=== PATIENT | male | born 1985 | race Caucasian/White ===

== ENCOUNTER 2018-09-08 14:42 | Inpatient (IN) | payer OTHER ==
[~2018-09-08] VITALS: Ht 175.3 cm; Wt 72.7 kg
[2018-09-08] MEDS ORDERED: ZYRTTAB8 PO (15:05)
[2018-09-08 15:58] LABS: HEMATOCRIT 45.7 % (42.0-52.0); HEMOGLOBIN 15.7 g/dl (13.5-17.5); MEAN CORPUSCULAR HEMOGLOBIN 29.7 pg (27.0-33.0); MEAN CORPUSCULAR HGB CONC 34.4 g/dl (32.0-36.5); MEAN CORPUSCULAR VOLUME 86.6 fl (80.0-96.0); PLATELET COUNT, AUTOMATED 307 10^3/uL (150-450); RED BLOOD COUNT 5.28 10^6/uL (4.30-6.10); WHITE BLOOD COUNT 13.8 10^3/uL (4.0-10.0)
[2018-09-08 16:21] LABS: AMPHETAMINES LEVEL URINE NEGATIVE (NEGATIVE); BARBITURATES URINE NEGATIVE (NEGATIVE); BENZODIAZEPINES URINE NEGATIVE (NEGATIVE); CANNABINOIDS URINE POSITIVE (NEGATIVE); COCAINE METABOLITE URINE NEGATIVE (NEGATIVE); METHADONE URINE NEGATIVE (NEGATIVE); OPIATES URINE NEGATIVE (NEGATIVE); PHENCYCLIDINE URINE NEGATIVE (NEGATIVE)
[2018-09-08 16:38] LABS: ACETAMINOPHEN LEVEL < 2.0 UG/ML (10.0-30.0); ALBUMIN 4.3 GM/DL (3.2-5.2); ALT/SGPT 22 U/L (12-78); BILIRUBIN,DIRECT 0.2 MG/DL (0.0-0.2); BILIRUBIN,TOTAL 0.6 MG/DL (0.2-1.0); BLOOD UREA NITROGEN 12 MG/DL (7-18); CALCIUM LEVEL 9.6 MG/DL (8.5-10.1); CARBON DIOXIDE LEVEL 27 MEQ/L (21-32); CHLORIDE LEVEL 106 MEQ/L (98-107); CREATININE FOR GFR 1.08 MG/DL (0.70-1.30); ETHYL ALCOHOL (ETHANOL) 0.005 % (0.000-0.010); GLOMERULAR FILTRATION RATE > 60.0 (>60); GLUCOSE, FASTING 90 MG/DL (70-100); SALICYLATE LEVEL 4.2 MG/DL (5.0-30.0); SODIUM LEVEL 141 MEQ/L (136-145); THYROID STIMULATING HORMONE 0.905 uIU/ML (0.358-3.740); TOTAL PROTEIN 7.9 GM/DL (6.4-8.2)
[2018-09-08] MEDS ORDERED: LORazepam 1 MG TAB PO ONE (16:45)
[2018-09-08] MEDS ORDERED: CETI-14 PO (17:11)
[2018-09-08] MEDS ORDERED: ONDANSETRON 4 MG TAB (S0181) PO ONE (17:45)
[2018-09-08] MEDS ORDERED: MOM 30ML SUSPENSION UDC PO PRN (18:15)
[2018-09-08] MEDS ORDERED: MAALOX 30 ML SUSP *UDC PO PRN (18:15)
[2018-09-08] MEDS ORDERED: ACETAMINOPHEN TAB 650MG DOSE (2X325MG) PO PRN (18:15)
[2018-09-08] MEDS ORDERED: traZODone 50 MG TAB PO PRN (18:15)
[2018-09-08 21:39] VITALS: BP 133/79
[2018-09-08] MEDS ORDERED: OLANZapine ORAL DISINTEGRATING TAB 5MG PO PRN (23:00)
[2018-09-08] MEDS ORDERED: ONDANSETRON 4 MG ORAL DISINTEGRATING TAB (Q0162 PER 1MG) SL PRN (23:00)
[2018-09-08] MEDS: traZODone 25MG PER 1/2 TABLET PO PRN (23:08)
[2018-09-09 06:47] VITALS: BP 109/56
[2018-09-09] MEDS: NICOTINE 21MG/24HR 1 EA TRANSDERMAL TD SCH (09:53)
--- NOTE | 2018-09-09 11:32 | HPEPDOC ---
General Date of Admission Sep 08, 2018 at 18:10 Date of Service: Sep 09, 2018 Chief Complaint The patient is a 33-year-old male who presented to the ER with complaints of withdrawal from Cymbalta History of Present Illness Patient is a 33-year-old male with a PMhx of seasonal allergies, depression, and impinged nerves 3/3 trauma while he was in the [employer]. Patient initially had presented to the emergency room with complaints of withdrawal from Cymbalta. He had reported that this is relatively the first time his experience of tinnitus experience dizziness euphoria, nausea, vomiting and diarrhea. Patient was admitted to the inpatient mental health unit under the care of psychiatry. Hospitalist service was called for medical management. Currently patient denies any headache, nausea, vomiting, chest pain, shortness of breath, abdominal pain, constipation, diarrhea, or urinary discomfort. Patient denies any fevers in the last 2 weeks, however, has reported some chills over the last 2 weeks. Patient has reported some intermittent palpitations while admitted. Patient reports that his appetite has been fluctuant and his weight has been fluctuating over the last 3 or 4 months. Home Medications Scheduled PRN Cetirizine HCl (Cetirizine HCl) 10 Mg Tablet, 10 MG PO DAILY PRN for ALLERGIES, (Reported) Allergies Coded Allergies: Penicillins (Verified Allergy, Severe, anaphylaxis, 09/08/18) Past Medical History Medical History Seasonal allergies, depression, and impinged nerves 3/3 trauma while he was in the [employer] Surgical History No reported surgeries Family History - Mother with a history of lupus psoriatic arthritis, fibromyalgia and breast cancer - Father is unknown Social History - Denies the use of alcohol; patient reports that he is a smoker of 10 years at 1 [facility]; patient does report illicit drug use with marijuana - Denies recent travel or sick contacts - Lives with and stepdaughter - Occupation; currently is out of the [employer] and works at the [employer] at [place] Review of Systems Other systems 10 point review of systems complete, all negative otherwise stated in HPI Vital Signs - Vitals: BP 109/56, HR 65, RR 16, Sat 97%RA, Temp 99.0F - General: No acute distress, Speaking in full sentences, AAOx3 - HEENT: NC, AT, PERRLA - CVS: RRR, +S1S2 - Lungs: Fair air entry bilaterally, no appreciable wheezing, rhonchi or rales - Abdomen: Soft, Non-distended, Non-tender - Extremities: No lower extremity edema, No calf tenderness - Neuro: No focal motor or sensory deficit - Skin: No visible rashes Laboratory Data Labs 24H Laboratory Tests 2 09/08/18 15:25: Urine Amphetamines Screen NEGATIVE, Urine Benzodiazepines Screen NEGATIVE, Urine Opiates Screen NEGATIVE, Urine Methadone Screen NEGATIVE, Urine Barbiturates Screen NEGATIVE, Urine Phencyclidine Screen NEGATIVE, Urine Cocaine Metabolite Screen NEGATIVE, Urine Cannabinoids Screen POSITIVEH 09/08/18 15:39: Nucleated Red Blood Cells % (auto) 0.0, Anion Gap 8, Glomerular Filtration Rate > 60.0, Calcium Level 9.6, Aspartate Amino Transf (AST/SGOT) 14, Alanine A minotransferase (ALT/SGPT) 22, Alkaline Phosphatase 65, Total Bilirubin 0.6, Direct Bilirubin 0.2, Total Protein 7.9, Albumin 4.3, Albumin/Globulin Ratio 1.19, Thyroid Stimulating Hormone (TSH) 0.905, Salicylates Level 4.2L, Acetaminophen Level < 2.0L, Ethyl Alcohol Level 0.005 CBC/BMP Laboratory Tests 09/08/18 15:39 Red Blood Count 5.28, Mean Corpuscular Volume 86.6, Mean Corpuscular Hemoglobin 29.7, Mean Corpuscular Hemoglobin Concent 34.4, Red Cell Distribution Width 13.7 Plan / VTE VTE Prophylaxis Ordered?: Yes Plan Plan Withdrawal symptoms associated with stopping anti-depressants - Patient has reported that this is the first time his experience something to this extent - Reported symptoms of dizziness euphoria, nausea, vomiting and diarrhea - Appears to be resolving - Currently being managed by psychiatry Seasonal allergies - Currently patient is not expressing any symptoms - Reports that he takes cetirizine when necessary Impinged nerves 3/3 trauma while he was in the [employer] - Patient has reported that he has been on gabapentin in the past, however, has not taken it in 3 months because of inability to see his primary care provider - Will resume gabapentin at 100mg TID DVT prophylaxis - c/w early ambulation Please reconsult as needed Female informatica was present throughout the duration of this history and physical examination MAURA EGAN MD Sep 09, 2018 11:32
[2018-09-09] MEDS: GABAPENTIN 100 MG CAP PO SCH ×3 (12:28→20:36)
[2018-09-09 19:14] VITALS: BP 100/53
[2018-09-10 06:55] VITALS: BP 95/51
--- NOTE | 2018-09-10 08:23 | MHHPE ---
DATE OF ADMISSION: 09/08/2018 HISTORY OF PRESENT ILLNESS: This is the first admission for this 33-year-old man who, according to the police, threatened to kill himself at home. He, apparently, went into his bathtub and had a loaded gun while in the tub. He then says that he changed his mind about it, and he put the gun down; however, the entered the room, started to take it away from him, could not, and then she called 911. This patient describes that he has been having problems due to having withdrawal from Cymbalta. The patient states that he retired from the [employer] after 14-1/2 years of service. 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 However, he clarifies to me that he does have now. He says that they had given him, upon discharge from the [employer], a large supply of the Neurontin, and he says he was taking up to 800 mg three times a day. They also gave him a supply of Cymbalta. He states he ran out of the Neurontin 3 months ago, and with the Cymbalta, he said he had been "microdosing," by which he meant, that he had been cutting it down slowly, and he said for a while he had only been taking 20 mg once a day, then he said he ran out 1 week ago. He says that he continues to have withdrawal, such as having dizziness, nausea, vomiting, diarrhea, being irritable and tearful episodes, being diaphoretic, and feeling confused. He tells me that he has read up on withdrawal from Cymbalta, and that he has found that there are some people that it takes up to 8 weeks for them to complete their withdrawal. Of note, I to not notice that he appears to be in much physical discomfort as he is talking to me and as he describes. The patient really had any suicidal attempt prior to admission. He did say that he has been suffering with back problems as he has problems with herniated discs, and he says that is why he on the Neurontin. He said that, in addition, his was not very sympathetic with him. He tells me that he is not even sure why he was prescribed Cymbalta by the [place] psychiatrist before he was discharged from the [facility]. He says that he got a copy of his records, and that there was no conclusive psychiatric diagnosis. The patient just keeps telling me "I just want to be detoxified from the Cymbalta." I advised the patient he has been off of it for a month. He already had cut it down to 20 mg, and so at this point, he should be having any possible symptoms resolved. Again, I explained that they should not last for 8 weeks, which he keeps feeling that this is what is supposed to happen. So, I kept trying to check to see if he had any depressive symptomatology or what, if any, depressive-like symptomatology he might have had in the [employer], and he really did not attest to any. What he did tell me is, "And I know that it is illegal, but I have been trying small doses of my 's Xanax." What he wants me to do is to put him on something like Xanax, because that way if he takes it one day and he does not feel he needs it the next day, that he does not want to have anything that could give him any potential with withdrawal like he feels that the Cymbalta has given him. I explained that, if anything, antidepressants are the best medications for both depression but also anxiety, and that something like Xanax is only good for anxiety, and then he stated, "Well, I think I have more problems with anxiety if anything." He insists that he is not suicidal, that he really did not have suicidal intent when he had the gun in the bathroom with him. Apparently, the police found multiple firearms that, apparently, they have been confiscated at this point. Regarding his , he tells me today that he recognizes that has "checked out" for quite a while now. By this, he means that he recognizes that he needs to give her her space. On discharge, he is planning to go live on his own and not back with the . PAST PSYCHIATRIC HISTORY: Other than the outpatient psychiatric treatment at [place] prior to his discharge from the [facility], he has never been in a psychiatric unit. He does say that he has had treatment since 2010 by the [facility] psychiatrist, and he says it was right around when the problems with his back began. FAMILY HISTORY: Negative. MEDICAL HISTORY: The patient does have chronic back pain due to herniated disc. ABUSE HISTORY: There is no history of any abuse. SUBSTANCE ABUSE: Patient admits that he has been using cannabis. He says that it is very small amounts, he says because since doing it, this really helps his back. MENTAL STATUS EXAM: He is alert and oriented times three. Eye contact is fairly good. Psychomotor activity is normal. He is verbally spontaneous. There was no formal thought disorder noted. He said that his mood was anxious, but he did not appear to be anxious. Affect was full range and appropriate. He is not psychotic, suicidal, homicidal. Concentration is fair. Memory intact. Insight and judgment are poor. DIAGNOSIS: Unspecified depressive disorder. Unspecified anxiety disorder. Rule out cannabis use disorder. Rule out benzodiazepine use disorder. TREATMENT PLAN: At this point, we will continue to evaluate this patient for any further suicidal ideations, which he is denying. In addition, we will continue to evaluate him for any possible mood symptoms, but at this point, he says that he is having anxiety and depression, although his whole history of psychiatric symptoms is very vague. Basically, he wanted me to prescribe him Xanax, which I advised him I would not do as this is very addictive medication. I suspect that it is possible that he might be having some withdrawal from Xanax, and that this could be why he is describing the above-noted symptoms of dizziness, lightheadedness, nausea, etc. Again, he said he had only been on 20 mg of Cymbalta for quite a while, and that he stopped it a week ago, and I really do not think that he should be having this much withdrawal symptoms or as severe as he is describing, and he just does not appear to be in withdrawal to me at this point by the way of his appearance. He does not want another antidepressant because he is afraid of having similar withdrawal symptoms as with Cymbalta. At this point, I am not sure that it is indicated for him to be on an antidepressant.
[2018-09-10] MEDS: NICOTINE 21MG/24HR 1 EA TRANSDERMAL TD SCH (09:23)
[2018-09-10] MEDS: GABAPENTIN 100 MG CAP PO SCH ×3 (09:23→20:55)
[2018-09-10 18:22] VITALS: BP 135/78
--- NOTE | 2018-09-11 00:11 | IPN ---
DATE: 09/10/2018 The patient today states that he is feeling "Today is a different day." He said yesterday, he took some Zyprexa as needed, felt tired and he slept all day and then it took him a while to sleep last night but he did a lot of writing and he says that that made him feel better. Today, he feels better and he is thinking about what he can do differently so that future treatments would be more effective. Of note if that the patient absolutely has no complaints about any physical symptoms of any withdrawal today. He did state that he does think that he has episodes of depression stating, "I have ups and downs all the time" and that he definitely has anxiety, he said. MENTAL STATUS EXAMINATION: He is alert. The eye contact is very good. He is verbally spontaneous. There is no formal thought disorder noted. Mood is better. Affect is full range and appropriate. He is not psychotic. He is not suicidal or homicidal. Concentration is fair. Memory is intact. Insight and judgment is fair. DIAGNOSES: 1. Unspecified disorder. 2. Unspecified anxiety disorder. 3. Rule out cannabis use disorder. 4. Rule out benzodiazepine use disorder. TREATMENT AND PLAN: At this point we will further observe and monitor the patient for continue elevation and stabilization of his mood and continued resolution of suicidal ideation. At this point he is still not taking any psychotropic medications. I am not sure that it is indicated at this point either because he is feeling so much better today.
[2018-09-11 06:49] VITALS: BP 106/58
[2018-09-11] MEDS: GABAPENTIN 100 MG CAP PO SCH ×3 (08:28→20:02)
[2018-09-11] MEDS: NICOTINE 21MG/24HR 1 EA TRANSDERMAL TD SCH (08:29)
--- NOTE | 2018-09-11 11:47 | MHIPNPDOC ---
[facility] Progress Note Progress Note DATE OF SERVICE: 09/11/18 HISTORY:Per Dr. Moss admit note: "This is the first admission for this 33-year-old man who, according to the police, threatened to kill himself at home. He, apparently, went into his bathtub and had a loaded gun while in the tub. He then says that he changed his mind about it, and he put the gun down; however, the entered the room, started to take it away from him, could not, and then she called 911. This patient describes that he has been having problems due to having withdrawal from Cymbalta. The patient states that he retired from the [employer] after 14-1/2 years of service. 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 However, he clarifies to me that he does have now. He says that they had given him, upon discharge from the [employer], a large supply of the Neurontin, and he says he was taking up to 800 mg three times a day. They also gave him a supply of Cymbalta. He states he ran out of the Neurontin 3 months ago, and with the Cymbalta, he said he had been "micro dosing," by which he meant, that he had been cutting it down slowly, and he said for a while he had only been taking 20 mg once a day, then he said he ran out 1 week ago. He says that he continues to have withdrawal, such as having dizziness, nausea, vomiting, diarrhea, being irritable and tearful episodes, being diaphoretic, and feeling confused. He tells me that he has read up on withdrawal from Cymbalta, and that he has found that there are some people that it takes up to 8 weeks for them to complete their withdrawal. Of note, I to not notice that he appears to be in much physical discomfort as he is talking to me and as he describes. The patient denies he really had any suicidal attempt prior to admission. He did say that he has been suffering with back problems as he has problems with herniated discs, and he says that is why he on the Neurontin. He said that, in addition, his was not very sympathetic with him. He tells me that he is not even sure why he was prescribed Cymbalta by the [place] psychiatrist before he was discharged from the [employer]. He says that he got a copy of his records, and that there was no conclusive psychiatric diagnosis. The patient just keeps telling me "I just want to be detoxified from the Cymbalta." I advised the patient he has been off of it for a month. He already had cut it down to 20 mg, and so at this point, he should be having any possible symptoms resolved. Again, I explained that they should not last for 8 weeks, which he keeps feeling that this is what is supposed to happen. So, I kept trying to check to see if he had any depressive symptomatology or what, if any, depressive-like symptomatology he might have had in the [employer], and he really did not attest to any. What he did tell me is, "And I know that it is illegal, but I have been trying small doses of my 's Xanax." What he wants me to do is to put him on something like Xanax, because that way if he takes it one day and he does not feel he needs it the next day, that he does not want to have anything that could give him any potential with withdrawal like he feels that the Cymbalta has given him. I explained that, if anything, antidepressants are the best medications for both depression but also anxiety, and that something like Xanax is only good for anxiety, and then he stated, "Well, I think I have more problems with anxiety if anything." He insists that he is not suicidal, that he really did not have suicidal intent when he had the gun in the bathroom with him. Apparently, the police found multiple firearms that, apparently, they have been confiscated at this point. Regarding his , he tells me today that he recognizes that has "checked out" for quite a while now. By this, he means that he recognizes that he needs to give her her space. On discharge, he is planning to go live on his own and not back with the ." VITAL SIGNS: See below. NEW TEST RESULTS: see below CURRENT MEDICATIONS: See below. MENTAL STATUS EXAMINATION: He is alert. The eye contact is very good. He is verbally spontaneous. There is no formal thought disorder noted. Mood is better. Affect is full range and appropriate. He is not psychotic. He is not suicidal or homicidal. Concentration is fair. Memory is intact. Insight and judgment is fair. DIAGNOSES: Unspecified anxiety disorder. R/O PTSD vs. TIBURCIO cannabis use disorder. ASSESSMENT::Pt seen and states that his mood is better and able to explain his why he was admitted again. States that he's no longer having cymbalta withdrawal and that zyprexa was very beneficial for him to be able to get good sleep and improved anxiety for two days first here and now feels like himself and much better. States he realizes and regrets his actions of grabbing his pistol and is glad his was there. States he wasn't thinking right out of the time due to how badly the cymbalta withdrawal was making him feel. States he's glad he's here for help. Endorses hypervigilance, increased startly, avoidance of crowds as related to PTSD and mood swings related to anxiety/affective dysregulation and believe prozac would be a good medication for mood and anxiety for him which he agrees to start after risks and benefits discussed. He's agreeable to starting atarax prn anxiety, risks/benefits discussed. States he slept well last night. Feels he is tolerating his medications and they're beneficial. He is attending groups and finding them helpful. He is hopeful and positive about his future.. He denies SI/HI, hallucinations, delusions. Pt feels safe here. MANAGEMENT PLAN: continue plan. Start prozac and atarax Gabapentin 100 mg TID ZyPREXA ZYDIS 10 mg Q4HP PRN PO ANXIETY/AGITATION Trazodone 25 mg QHSP PRN PO INSOMNIA Prozac 10mg daily atarax 25mg q6hr prn anxiety TIME SPENT: 30minutes. Vital Signs Vital Signs Date Time Temp Pulse Resp B/P (MAP) Pulse Ox O2 Delivery O2 Flow Rate FiO2 09/11/18 06:49 98.5 79 12 106/58 (74) 09/08/18 21:39 97 09/08/18 15:05 Room Air Current Medications Current Medications Acetaminophen (Tylenol Tab) 650 mg Q6HP PRN PO HEADACHE or DISCOMFORT; Start 09/08/18 at 18:15 Al Hydrox/Mg Hydrox/Simethicone (Mylanta) 30 ml Q4HP PRN PO HEARTBURN/INDIGESTION; Start 09/08/18 at 18:15 Gabapentin (Neurontin) 100 mg TID PO Last administered on 09/11/18at 08:28; Start 09/09/18 at 09:00 Home Med (Med Rec Complete!) ASDIRECTED XX ; Start 09/08/18 at 17:15; Stop 09/08/18 at 17:20; Status DC Magnesium Hydroxide (Milk Of Magnesia) 30 ml DAILYPRN PRN PO CONSTIPATION; Start 09/08/18 at 18:15 Nicotine (Nicoderm Cq 21mg) 1 patch DAILY TD Last administered on 09/11/18at 08:29; Start 09/09/18 at 09:00 Olanzapine (ZyPREXA ZYDIS) 10 mg Q4HP PRN PO ANXIETY/AGITATION Last administered on 09/09/18at 09:53; Start 09/08/18 at 23:00 Ondansetron HCl (Zofran Odt) 4 mg Q4HP PRN SL NAUSEA OR VOMITING; Start 09/08/18 at 23:00 Trazodone HCl (Desyrel) 25 mg QHSP PRN PO INSOMNIA Last administered on 09/08/18at 23:08; Start 09/08/18 at 23:00 Trazodone HCl (Desyrel) 50 mg QHSP PRN PO INSOMNIA; Start 09/08/18 at 18:15; Status Cancel Allergies Coded Allergies: Penicillins (Verified Allergy, Severe, anaphylaxis, 09/08/18) WILLIAM MAR DO Sep 11, 2018 11:47 am
[2018-09-11] MEDS ORDERED: FLUoxetine 10 MG CAP PO ONE (13:00)
[2018-09-11] MEDS ORDERED: hydrOXYzine 25 MG TAB PO PRN (13:00)
[2018-09-11 18:00] VITALS: BP 138/65
[2018-09-11] MEDS: traZODone 25MG PER 1/2 TABLET PO PRN (20:02)
[2018-09-12 06:16] VITALS: BP 116/55
[2018-09-12] MEDS: GABAPENTIN 100 MG CAP PO SCH ×3 (08:15→20:32)
[2018-09-12] MEDS: NICOTINE 21MG/24HR 1 EA TRANSDERMAL TD SCH (08:15)
[2018-09-12] MEDS: FLUoxetine 10 MG CAP PO SCH (08:15)
--- NOTE | 2018-09-12 09:37 | MHIPNPDOC ---
[facility] Progress Note Progress Note DATE OF SERVICE: 09/12/18 HISTORY: Per Dr. Moss admit note: "This is the first admission for this 33-year-old man who, according to the police, threatened to kill himself at home. He, apparently, went into his bathtub and had a loaded gun while in the tub. He then says that he changed his mind about it, and he put the gun down; however, the entered the room, started to take it away from him, could not, and then she called 911. This patient describes that he has been having problems due to having withdrawal from Cymbalta. The patient states that he retired from the [employer] after 14-1/2 years of service. 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 However, he clarifies to me that he does have now. He says that they had given him, upon discharge from the [employer], a large supply of the Neurontin, and he says he was taking up to 800 mg three times a day. They also gave him a supply of Cymbalta. He states he ran out of the Neurontin 3 months ago, and with the Cymbalta, he said he had been "micro dosing," by which he meant, that he had been cutting it down slowly, and he said for a while he had only been taking 20 mg once a day, then he said he ran out 1 week ago. He says that he continues to have withdrawal, such as having dizziness, nausea, vomiting, diarrhea, being irritable and tearful episodes, being diaphoretic, and feeling confused. He tells me that he has read up on withdrawal from Cymbalta, and that he has found that there are some people that it takes up to 8 weeks for them to complete their withdrawal. Of note, I to not notice that he appears to be in much physical discomfort as he is talking to me and as he describes. The patient denies he really had any suicidal attempt prior to admission. He did say that he has been suffering with back problems as he has problems with herniated discs, and he says that is why he on the Neurontin. He said that, in addition, his was not very sympathetic with him. He tells me that he is not even sure why he was prescribed Cymbalta by the [place] psychiatrist before he was discharged from the [employer]. He says that he got a copy of his records, and that there was no conclusive psychiatric diagnosis. The patient just keeps telling me "I just want to be detoxified from the Cymbalta." I advised the patient he has been off of it for a month. He already had cut it down to 20 mg, and so at this point, he should be having any possible symptoms resolved. Again, I explained that they should not last for 8 weeks, which he keeps feeling that this is what is supposed to happen. So, I kept trying to check to see if he had any depressive symptomatology or what, if any, depressive-like symptomatology he might have had in the [employer], and he really did not attest to any. What he did tell me is, "And I know that it is illegal, but I have been trying small doses of my 's Xanax." What he wants me to do is to put him on something like Xanax, because that way if he takes it one day and he does not feel he needs it the next day, that he does not want to have anything that could give him any potential with withdrawal like he feels that the Cymbalta has given him. I explained that, if anything, antidepressants are the best medications for both depression but also anxiety, and that something like Xanax is only good for anxiety, and then he stated, "Well, I think I have more problems with anxiety if anything." He insists that he is not suicidal, that he really did not have suicidal intent when he had the gun in the bathroom with him. Apparently, the police found multiple firearms that, apparently, they have been confiscated at this point. Regarding his , he tells me today that he recognizes that has "checked out" for quite a while now. By this, he means that he recognizes that he needs to give her her space. On discharge, he is planning to go live on his own and not back with the ." VITAL SIGNS: See below. NEW TEST RESULTS: see below CURRENT MEDICATIONS: See below. MENTAL STATUS EXAMINATION: He is alert. The eye contact is very good. He is verbally spontaneous. There is no formal thought disorder noted. Mood is "alright". Affect is full range and appropriate. He is not psychotic. He is not suicidal or homicidal. Concentration is good. Memory is intact. Insight and judgment is good. DIAGNOSES: Unspecified anxiety disorder. R/O PTSD vs. TIBURCIO cannabis use disorder. ASSESSMENT::Pt seen and states that his mood is better and states he started the prozac and feels it's beneficial, tolerating well, denies side effects. States he spoke with his after she called the unit asking why he hadn't called her and stated it wasn't good conversation b/c she didn't want to speak with him. States he realizes she needs "space" after incident leading to admission and continue to work on himself and improvement in his mental health. Per yesterday's note "States he realizes and regrets his actions of grabbing his pistol and is glad his was there. States he wasn't thinking right out of the time due to how badly the cymbalta withdrawal was making him feel. States he's glad he's here for help. Endorses hypervigilance, increased startle, avoidance of crowds as related to PTSD and mood swings related to anxiety/affective dysregulation." States he slept well last night. Feels he is tolerating his medications and they're beneficial. He is attending groups and finding them helpful. He is hopeful and positive about his future. He denies SI/HI, hallucinations, delusions. Pt feels safe here. MANAGEMENT PLAN: continue plan. Gabapentin 100 mg TID ZyPREXA ZYDIS 10 mg Q4HP PRN PO ANXIETY/AGITATION Trazodone 25 mg QHSP PRN PO INSOMNIA Prozac 10mg daily atarax 25mg q6hr prn anxiety TIME SPENT: 30minutes. Vital Signs Vital Signs Date Time Temp Pulse Resp B/P (MAP) Pulse Ox O2 Delivery O2 Flow Rate FiO2 09/12/18 06:16 97.9 68 18 116/55 (75) 09/08/18 21:39 97 09/08/18 15:05 Room Air Current Medications Current Medications Acetaminophen (Tylenol Tab) 650 mg Q6HP PRN PO HEADACHE or DISCOMFORT; Start 09/08/18 at 18:15 Al Hydrox/Mg Hydrox/Simethicone (Mylanta) 30 ml Q4HP PRN PO HEARTBURN/INDIGESTION; Start 09/08/18 at 18:15 Fluoxetine HCl (PROzac) 10 mg DAILY PO Last administered on 09/12/18at 08:15; Start 09/12/18 at 09:00 Gabapentin (Neurontin) 100 mg TID PO Last administered on 09/12/18at 08:15; Start 09/09/18 at 09:00 Home Med (Med Rec Complete!) ASDIRECTED XX ; Start 09/08/18 at 17:15; Stop 09/08/18 at 17:20; Status DC Hydroxyzine HCl (Atarax) 25 mg Q6HP PRN PO ANXIETY; Start 09/11/18 at 13:00 Magnesium Hydroxide (Milk Of Magnesia) 30 ml DAILYPRN PRN PO CONSTIPATION; Start 09/08/18 at 18:15 Nicotine (Nicoderm Cq 21mg) 1 patch DAILY TD Last administered on 09/12/18at 08:15; Start 09/09/18 at 09:00 Olanzapine (ZyPREXA ZYDIS) 10 mg Q4HP PRN PO ANXIETY/AGITATION Last administered on 09/09/18at 09:53; Start 09/08/18 at 23:00 Ondansetron HCl (Zofran Odt) 4 mg Q4HP PRN SL NAUSEA OR VOMITING; Start 09/08/18 at 23:00 Trazodone HCl (Desyrel) 25 mg QHSP PRN PO INSOMNIA Last administered on 09/11/18at 20:02; Start 09/08/18 at 23:00 Trazodone HCl (Desyrel) 50 mg QHSP PRN PO INSOMNIA; Start 09/08/18 at 18:15; Status Cancel Allergies Coded Allergies: Penicillins (Verified Allergy, Severe, anaphylaxis, 09/08/18) WILLIAM MAR DO Sep 12, 2018 9:11 am
[2018-09-12 18:00] VITALS: BP 137/79
[2018-09-12] MEDS: traZODone 25MG PER 1/2 TABLET PO PRN (20:32)
[2018-09-13 06:10] VITALS: BP 120/72
[2018-09-13] MEDS: NICOTINE 21MG/24HR 1 EA TRANSDERMAL TD SCH (08:04)
[2018-09-13] MEDS: FLUoxetine 10 MG CAP PO SCH (08:05)
[2018-09-13] MEDS: GABAPENTIN 100 MG CAP PO SCH (08:05)
[2018-09-13] MEDS ORDERED: HYDR-3363 PO (08:45)
[2018-09-13] MEDS ORDERED: FLUO10CA8 PO (08:45)
[2018-09-13] MEDS ORDERED: GABA-1171 PO (08:45)
[2018-09-13] MEDS ORDERED: TRAZ-252 PO (08:45)
--- NOTE | 2018-09-13 08:45 | MHDSPDOC ---
[facility] Discharge Summary Discharge Summary DATE OF ADMISSION: Sep 08, 2018 at 6:10 pm DATE OF DISCHARGE: Sep 13, 2018 DISCHARGE DIAGNOSES: Unspecified anxiety disorder. R/O PTSD vs. TIBURCIO cannabis use disorder. REASON FOR ADMISSION: Per Dr. Moss admit note: "This is the first admission for this 33-year-old man who, according to the police, threatened to kill himself at home. He, apparently, went into his bathtub and had a loaded gun while in the tub. He then says that he changed his mind about it, and he put the gun down; however, the entered the room, started to take it away from him, could not, and then she called 911. This patient describes that he has been having problems due to having withdrawal from Cymbalta. The patient states that he retired from the [employer] after 14-1/2 years of service. 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 However, he clarifies to me that he does have now. He says that they had given him, upon discharge from the [employer], a large supply of the Neurontin, and he says he was taking up to 800 mg three times a day. They also gave him a supply of Cymbalta. He states he ran out of the Neurontin 3 months ago, and with the Cymbalta, he said he had been "micro dosing," by which he meant, that he had been cutting it down slowly, and he said for a while he had only been taking 20 mg once a day, then he said he ran out 1 week ago. He says that he continues to have withdrawal, such as having dizziness, nausea, vomiting, diarrhea, being irritable and tearful episodes, being diaphoretic, and feeling confused. He tells me that he has read up on withdrawal from Cymbalta, and that he has found that there are some people that it takes up to 8 weeks for them to complete their withdrawal. Of note, I to not notice that he appears to be in much physical discomfort as he is talking to me and as he describes. The patient denies he really had any suicidal attempt prior to admission. He did say that he has been suffering with back problems as he has problems with herniated discs, and he says that is why he on the Neurontin. He said that, in addition, his was not very sympathetic with him. He tells me that he is not even sure why he was prescribed Cymbalta by the [place] psychiatrist before he was discharged from the [employer]. He says that he got a copy of his records, and that there was no conclusive psychiatric diagnosis. The patient just keeps telling me "I just want to be detoxified from the Cymbalta." I advised the patient he has been off of it for a month. He already had cut it down to 20 mg, and so at this point, he should be having any possible symptoms resolved. Again, I explained that they should not last for 8 weeks, which he keeps feeling that this is what is supposed to happen. So, I kept trying to check to see if he had any depressive symptomatology or what, if any, depressive-like symptomatology he might have had in the [employer], and he really did not attest to any. What he did tell me is, "And I know that it is illegal, but I have been trying small doses of my 's Xanax." What he wants me to do is to put him on something like Xanax, because that way if he takes it one day and he does not feel he needs it the next day, that he does not want to have anything that could give him any potential with withdrawal like he feels that the Cymbalta has given him. I explained that, if anything, antidepressants are the best medications for both depression but also anxiety, and that something like Xanax is only good for anxiety, and then he stated, "Well, I think I have more problems with anxiety if anything." He insists that he is not suicidal, that he really did not have suicidal intent when he had the gun in the bathroom with him. Apparently, the police found multiple firearms that, apparently, they have been confiscated at this point. Regarding his , he tells me today that he recognizes that has "checked out" for quite a while now. By this, he means that he recognizes that he needs to give her her space. On discharge, he is planning to go live on his own and not back with the ." CONSULTANTS INVOLVED: none TREATMENT AND PROGRESS ON THE UNIT :Pt was admitted to [facility], seen for psychiatric assessment and started on prozac 10mg and gabapentin 100mg tid for anxiety. He was provided vistaril 25mg q6hr prn anxiety and trazodone 500mg qhs prn insomnia. Pt found his medications beneficial and tolerated them well. He attended groups daily during his stay. His symptoms improved with treatment. On day of discharge he denied depression, anxiety, insomnia, SI/HI, hallucinations, delusions. His guns were removed from his home by the police on admission. He was discharged home with follow-up at [facility].. He felt sa fe for discharge. DISCHARGE ASSESSMENT: Pt seen and states that his mood is good and he's looking forward to going home today. States his prozac feels beneficial, is tolerating well, denies side effects. States he spoke with his during his admission after she called the unit asking why he hadn't called her and stated it wasn't good conversation b/c she didn't want to speak with him. States he realizes she needs "space" after incident leading to admission and continue to work on hi mself and improvement in his mental health. Per 09/11/18 note "States he realizes and regrets his actions of grabbing his pistol and is glad his was there. States he wasn't thinking right out of the time due to how badly the cymbalta withdrawal was making him feel. States he's glad he's here for help. Endorses hypervigilance, increased startle, avoidance of crowds as related to PTSD and mood swings related to anxiety/affective dysregulation." States he slept well last night. Feels he is tolerating his medications and they're beneficial. He is attending groups and finding them helpful. He is hopeful and positive about his future. He denies depression, anxiety, insomnia, SI/HI, hallucinations, delusions. Pt feels safe to be discharged home. MENTAL STATUS EXAMINATION ON DISCHARGE: He is alert. The eye contact is very good. He is verbally spontaneous. There is no formal thought disorder noted. Mood is "good". Affect is full range and appropriate. He is not psychotic. He is not suicidal or homicidal. Concentration is good. Memory is intact. Insight and judgment are good. MEDICATIONS ON DISCHARGE: Gabapentin 100 mg TID Trazodone 25 mg qhs prn insomnia Prozac 10mg daily atarax 25mg q6hr prn anxiety PLAN/FOLLOWUP ARRANGEMENTS: D/c home with follow-up at [facility]. The amount of time spent in the coordination of care for this patient was approximately 30 minutes. Vital Signs/I&Os Vital Signs Date Time Temp Pulse Resp B/P (MAP) Pulse Ox O2 Delivery O2 Flow Rate FiO2 09/13/18 06:10 98.6 64 18 120/72 (88) 09/08/18 21:39 97 09/08/18 15:05 Room Air Medications Scheduled PRN Cetirizine HCl (Cetirizine HCl) 10 Mg Tablet, 10 MG PO DAILY PRN for ALLERGIES, (Reported) Allergies Coded Allergies: Penicillins (Verified Allergy, Severe, anaphylaxis, 09/08/18) WILLIAM MAR DO Sep 13, 2018 8:45 am
== END 2018-09-13 11:40 | disposition home or self-care (01) | DRG 880 ==
LOC: M ED 14:42 → M ED INP 18:10 → M PSY 21:26
PROVIDERS: ADMIT Psychiatry & Neurology Psychiatry; ATTEND Psychiatry & Neurology Psychiatry
DX: F41.1 Generalized anxiety disorder (principal); F43.10 Post-traumatic stress disorder, unspecified; F12.90 Cannabis use, unspecified, uncomplicated; Z79.899 Other long term (current) drug therapy; Z88.0 Allergy status to penicillin; F17.200 Nicotine dependence, unspecified, uncomplicated; Z91.14 Patient's other noncompliance with medication regimen; R42 Dizziness and giddiness; R19.7 Diarrhea, unspecified